=== PATIENT | female | born 1955 | race Caucasian/White ===

== ENCOUNTER → 2018-02-08 | Outpatient (CLI) | payer MEDICARE | LOC: CFH 09:57 | PROVIDERS: ATTEND Physician Assistant Medical | DX: N28.1 Cyst of kidney, acquired (principal) | CPT/HCPCS: 74181 ==

== ENCOUNTER → 2018-04-05 | Outpatient (CLI) | payer MEDICARE ==
[~2018-04-05] MED LIST: ALBU18HF INH; ATOR20TA9 PO; CARI350T14 PO; CLON0.1T PO; FLUT1BLS3 INH; GABA-827 PO; IPRA3AMP NEB; OXYC1TAB9 PO; ZOLP10TA5 PO
== END | disposition home or self-care (01) ==
LOC: CFH 08:18
PROVIDERS: ATTEND Physician Assistant Medical
DX: K83.1 Obstruction of bile duct (principal); N28.1 Cyst of kidney, acquired; K82.0 Obstruction of gallbladder
CPT/HCPCS: 74181